=== PATIENT | male | born 1940 | race Caucasian/White ===

== ENCOUNTER 2017-12-09 09:19 | Outpatient (CLI) | payer MEDICARE, BC ==
--- NOTE | 2017-12-09 10:17 | RAD ---
[facility] PA AND LATERAL: HISTORY: A 76-year-old male with a history of chest pain and shortness of breath. COMPARISON: 04/04/17. Postop changes in the right hilar region. Stable pleural and parenchymal opacity changes in the righ t chest. Increased linear and interstitial markings in the left base which appear more prominent ki n on the prior study. This could represent some mild acute vascular congestion. No evidence for con fluent pneumonia. IMPRESSION: Stable-appearing postoperative changes and chronic changes in the right chest. Slightly more promine nt increased linear and interstitial markings in the left lung base, possibly some mild acute vascula r congestion or some minimal developing nonspecific atypical pneumonia or pneumonitis, but no evidenc e for acute confluent process. POS: [facility]
== END 2017-12-09 09:20 | disposition home or self-care (01) ==
LOC: SCSRAD 09:19
PROVIDERS: ATTEND Nurse Practitioner Family
DX: R05 Cough (principal); Z98.890 Other specified postprocedural states
CPT/HCPCS: 71046

== ENCOUNTER → 2022-10-14 | Emergency (ER) | payer MEDICARE, BC ==
[~2022-10-14] MED LIST: Oxymetazoline HCl 0.05% (30 ML BOT) ONE; Tranexamic Acid 1,000 MG/10 ML VIAL ONE; Triple Antibiotic Oint 1 GM Packet ONE
[2022-10-14 10:11] LABS: Hemoglobin 12.2 g/dL (14.0-18.0); Mean Corpuscular HGB CONC 31.7 g/dL (32.0-36.0); Mean Corpuscular Hemoglobin 28.7 pg (27.0-31.0); Mean Corpuscular Volume 90.8 fl (78.0-98.0); Mean Platelet Volume 8.7 fL (7.4-10.4); Platelet Count 369 10x3/uL (130-400); RBC Distribution Width 13.1 % (11.5-14.5); Red Blood Cell (RBC) Count 4.23 mill/uL (4.70-6.10); White Blood Cell (WBC) Count 21.1 10x3/uL (4.8-10.8)
[2022-10-14 10:30] LABS: Band 11 % (5-11); Hypochromia SLIGHT = 6-15 cells (100X) (0-5/hpf); Lymphocytes 2 % (21-51); MDiff Complete? YES; Monocytes 5 % (0-10); Neutrophil 82 % (42-75); Platelet Morphology Comment Appears Adequate
[2022-10-14 11:08] LABS: PTT 38.3 sec (22.9-36.1)
== END ==
LOC: ERS 09:33
DX: J32.0 Chronic maxillary sinusitis (principal); E78.5 Hyperlipidemia, unspecified; I10 Essential (primary) hypertension; K21.9 Gastro-esophageal reflux disease without esophagitis; F17.210 Nicotine dependence, cigarettes, uncomplicated; Z79.899 Other long term (current) drug therapy
CPT/HCPCS: 36415; 85025; 85610; 85730; 99283

== ENCOUNTER 2023-06-21 11:00 | Outpatient (CLI) | payer MEDICARE, BC | END 2023-06-21 11:01 | disposition home or self-care (01) | LOC: PET 11:00 | PROVIDERS: ATTEND Internal Medicine Hematology & Oncology | DX: C34.12 Malignant neoplasm of upper lobe, left bronchus or lung (principal); R91.1 Solitary pulmonary nodule | CPT/HCPCS: 78815; A9552 ==

== ENCOUNTER 2023-07-25 10:40 | Emergency (ER) | payer MEDICARE, BC ==
[2023-07-25] MEDS ORDERED: LevoFLOXacin 500 mg/D5W 100 ML BAG ONE (11:42)
== END 2023-07-25 13:00 | disposition home or self-care (01) ==
LOC: ERS 10:40
DX: C78.00 Secondary malignant neoplasm of unspecified lung (principal); R09.02 Hypoxemia; J18.9 Pneumonia, unspecified organism; I48.91 Unspecified atrial fibrillation; K21.9 Gastro-esophageal reflux disease without esophagitis; E78.5 Hyperlipidemia, unspecified; I10 Essential (primary) hypertension; Z79.899 Other long term (current) drug therapy
CPT/HCPCS: 71045; 96365; J1956